=== PATIENT | female | born 1950 | race Hispanic/Latino ===

== ENCOUNTER → 2020-10-01 | Outpatient (CLI) | payer MEDICARE | LOC: MAMMO 12:46 | PROVIDERS: ATTEND Internal Medicine | DX: Z12.31 Encounter for screening mammogram for malignant neoplasm of breast (principal) | CPT/HCPCS: 77067 ==

== ENCOUNTER → 2022-02-21 | Outpatient (CLI) | payer MEDICARE | LOC: MAMMO 12:48 | PROVIDERS: ATTEND Internal Medicine | DX: Z12.31 Encounter for screening mammogram for malignant neoplasm of breast (principal); Z13.820 Encounter for screening for osteoporosis; M17.0 Bilateral primary osteoarthritis of knee; M43.07 Spondylolysis, lumbosacral region | CPT/HCPCS: 72110; 77067; 77080 ==